=== PATIENT | female | born 1970 | race Caucasian/White ===

== ENCOUNTER 2017-08-14 11:02 | Emergency (ER) | payer MEDICAID ==
[2017-08-14 12:09] LABS: BASOPHILS 0.3 % (0-2); EOSINOPHILS 1.4 % (0-7); HEMATOCRIT 40.3 % (36.0-48.0); HEMOGLOBIN 14.1 g/dL (12-16); IMMATURE GRANULOCYTES 0.6 % (0-5); LYMPHOCYTES 29.5 % (15-50); MCH 32.1 pg (26.0-34.0); MCV 91.8 fL (80.0-100.0); MEAN PLATELET VOLUME 9.2 fL (7.4-10.4); MONOCYTES 5.5 % (2-11); NEUTROPHILS 62.7 % (40-80); PLATELET COUNT 322 10x3/uL (130-400); RBC 4.39 10x6/uL (4.00-5.40); RDW 12.6 % (11.5-14.5); WBC 11.2 10x3/uL (4.8-10.8)
[2017-08-14 12:28] LABS: ALBUMIN 3.7 g/dL (3.4-5.0); ALKALINE PHOSPHATASE 52 U/L (46-116); ALT (SGPT) 24 U/L (10-68); CALC OSMOLALITY 274 mosm/kg (275-300); CALCIUM 8.9 mg/dL (8.5-10.1); CARBON DIOXIDE 29.1 mmol/L (21.0-32.0); CHLORIDE - SERUM 103 mmol/L (98-107); CREATININE - SERUM 0.7 mg/dL (0.6-1.3); GLUCOSE 92 mg/dL (74-106); PROTEIN - SERUM 7.5 g/dL (6.4-8.2); SODIUM 138 mmol/L (136-145); UREA NITROGEN 9 mg/dL (7-18); eGFR NON AFRICAN AMERICAN > 90 mL/min (90-120)
[2017-08-14 12:44] LABS: APPEARANCE HAZY (CLEAR); BILIRUBIN NEGATIVE (NEGATIVE); COLOR YELLOW (YELLOW); GLUCOSE NEGATIVE (NEGATIVE); KETONE NEGATIVE (NEGATIVE); LEUKOCYTE ESTERASE NEGATIVE (NEGATIVE); NITRITE NEGATIVE (NEGATIVE); PROTEIN NEGATIVE (NEGATIVE); SPECIFIC GRAVITY 1.005 (1.005-1.020); UROBILINOGEN NORMAL (NORMAL)
[2017-08-14 12:45] LABS: BACTERIA MODERATE /hpf (NONE SEEN); EPITHELIAL CELLS 0-5 /hpf (0-5); MUCUS <1+ /lpf (NONE SEEN); RED CELLS - URINE OCC /hpf (0-5)
== END 2017-08-14 15:52 | disposition home or self-care (01) ==
LOC: D.ER 11:02
PROVIDERS: Emergency Medicine
DX: N83.202 Unspecified ovarian cyst, left side (principal); I10 Essential (primary) hypertension; F17.200 Nicotine dependence, unspecified, uncomplicated

== ENCOUNTER 2017-08-25 05:03 | Inpatient (IN) | payer MEDICAID ==
[2017-08-22 14:39] LABS: BASOPHILS 0.2 % (0-2); EOSINOPHILS 1.7 % (0-7); HEMATOCRIT 41.2 % (36.0-48.0); HEMOGLOBIN 14.5 g/dL (12-16); IMMATURE GRANULOCYTES 0.4 % (0-5); LYMPHOCYTES 31.5 % (15-50); MCH 32.3 pg (26.0-34.0); MCHC 35.2 g/dL (31.0-37.0); MCV 91.8 fL (80.0-100.0); MONOCYTES 5.5 % (2-11); NEUTROPHILS 60.7 % (40-80); PLATELET COUNT 335 10x3/uL (130-400); RBC 4.49 10x6/uL (4.00-5.40); RDW 13.1 % (11.5-14.5); WBC 12.3 10x3/uL (4.8-10.8)
[2017-08-22 14:50] LABS: CALC OSMOLALITY 270 mosm/kg (275-300); CALCIUM 8.8 mg/dL (8.5-10.1); CARBON DIOXIDE 29.8 mmol/L (21.0-32.0); CHLORIDE - SERUM 106 mmol/L (98-107); CREATININE - SERUM 0.7 mg/dL (0.6-1.3); GLUCOSE 96 mg/dL (74-106); POTASSIUM - SERUM 3.6 mmol/L (3.5-5.1); SODIUM 136 mmol/L (136-145); UREA NITROGEN 10 mg/dL (7-18); eGFR NON AFRICAN AMERICAN > 90 mL/min (90-120)
[~2017-08-25 05:03] MED LIST: CLONAZEPAM2 MG/TAB PO; CYCLOBENZAPRINE10 MG PO; DESERYL100 MG PO; HCTZ25 MG PO; NITROQUICK0.4 MG SL; OXYCODONE HCL10 MG PO; PHENERGAN25 M1 PO; PRINIVIL20 MG PO; PROVENTIL HFA6.7 GM INH; TENORMIN25 MG PO
[2017-08-25] MEDS ORDERED: CATAPRES0.3 MG PO (06:09)
[2017-08-25 06:12] VITALS: BP 113/67; BMI 24.5
--- NOTE | 2017-08-25 10:12 | NUR ---
ANESTHEIA ADVISES THE PATIENT HAS CHRONIC PAIN. ANESTHESIA ADVISED THE PATIENT WAS GIVEN KETAMINE AND HAD A TAP BLOCK FOR HER PROCEEDURE.
--- NOTE | 2017-08-25 10:26 | NUR ---
DR NAVA CONSULTED ABOUT THE PATIENTS PAIN AND VS IN THE RECOVERY ROOM.
[2017-08-25 10:44] VITALS: BP 122/74
--- NOTE | 2017-08-25 11:00 | NUR ---
PT WAS RECEIVED FROM RECOVERY ROOM S/P EXPOLORATORY LAPOROSCOPY WIH LYSIS OF ADHESIONS AND LEFT SALPINGO OOPHERECTOMY. PT IS DROWSY AND WHEN SHE IS AROUSED SHE STATES SHE IS HAVING PAIN AND IT IS A 10. FAMILY AT BEDSIDE. PT TRANSFERRED FROM STRETCHER TO BED. SIDE RAILS UP. BED LOWERED. GEN- DROWSY, EASY TO AROUSE. LUNGS- CLEAR BILATERALLY. HEART- RRR. ABD- SOFT WITH TENDERNESS NOTED. LAPAROSCOPIC INCISIONS NOTED WELL LOW TRANVSVERSE INCISION, CLEAN AND DRY. ICE PACK PLACED ON ABDOMEN. KELLY INTACT. SECURED TO R THIGH. SCD'S INTACT AND INITIATED. IV PATENT LEFT WRIST WITH LACTATED RINGERS INFUSING AT 125 CC/HR. STRATEGY SPECIALIST INITIATED. DILAUDID 0.4 MG Q 10 MIN WITH 6 MG LOCKOUT.
--- NOTE | 2017-08-25 11:30 | NUR ---
PT RESTING. FAMILY AT BEDSIDE. PT IS REQUESTING DIET DR VÁSQUEZ. EXPLAINED THAT SHE WAS ON CLEAR LIQUIDS AT THIS TIME. O 2 SAT 96 ON 2 LITERS VIA NASAL CANNULA. VSS
--- NOTE | 2017-08-25 12:48 | NUR ---
PT IS SLEEPING. O2 SAT 93 ON 2 LITERS OF 02 VIA NC. BED IS LOW, SIDE RAILS UP X 2 AND CALL LIGHT IN REACH.
--- NOTE | 2017-08-25 12:51 | NUR ---
350 CC URINE OUTPUT. NONA COLORED URINE.
[2017-08-25 12:58] VITALS: BP 133/77; BMI 24.5
--- NOTE | 2017-08-25 14:01 | NUR ---
PT WOKE UP. SHE ASK FOR A DIET SPRITE. GIVEN. SHE STATES THAT SHE IS DOING BETTER. FAMILY AT BEDSIDE.
--- NOTE | 2017-08-25 16:30 | NUR ---
DR FAJARDO IS HERE TO SEE PT. HE DISCUSSED HER SURGERY WITH HER.
[2017-08-25 17:32] LABS: BASOPHILS 0 % (0-2); EOSINOPHILS 0.1 % (0-7); IMMATURE GRANULOCYTES 0.2 % (0-5); LYMPHOCYTES 4.6 % (15-50); MCH 31.7 pg (26.0-34.0); MCHC 34.2 g/dL (31.0-37.0); MCV 92.7 fL (80.0-100.0); MEAN PLATELET VOLUME 9.1 fL (7.4-10.4); MONOCYTES 3.1 % (2-11); PLATELET COUNT 315 10x3/uL (130-400); RDW 13.1 % (11.5-14.5); WBC 15.2 10x3/uL (4.8-10.8)
[2017-08-25 19:15] VITALS: BP 114/70
--- NOTE | 2017-08-25 19:15 | NUR ---
BEDSIDE REPORT DONE. PT AWAKE. INTRODUCED SELF. V/S TAKEN. ASSESSMENT DONE. STATUS POST RSO/LSO LYSIS OF ADHESIONS. LAP INCISIONS WITH LOW TRANSVERSE INCISIOIN. REFILLED ICE BAG TO ABD. KELLY CATH TO DRAINAGE BAG. IVF--LR TO L ARM. IV SITE OK. ON DILAUDID PUTTY PATCHER FOR PAIN MANAGEMENT. O2 SAT 97% @ 2L/NC. SCD's TO BOTH LOWER EXTREMITIES TO PREVENT DVT.
--- NOTE | 2017-08-25 19:30 | NUR ---
DILAUDID CLIENT CARE MANAGER SYRINGE CHANGED.
--- NOTE | 2017-08-25 20:55 | NUR ---
KLONOPIN 2mg PO GIVEN. SEE E-MAR.
--- NOTE | 2017-08-26 00:30 | NUR ---
EYES CLOSED. LEFT UNDISTURBED.
[2017-08-26 02:23] VITALS: BP 116/81
--- NOTE | 2017-08-26 04:45 | NUR ---
ANIMAL CARE PROVIDER HERE TO DRAW AM LAB.
--- NOTE | 2017-08-26 05:39 | NUR ---
DILAUDID MANUFACTURING ENGINEER ASSEMBLY SYRINGE CHANGED. SLEPT FAIRLY DURING THE NIGHT. CONTINUING PLAN OF CARE.
[2017-08-26 06:18] LABS: BASOPHILS 0.1 % (0-2); EOSINOPHILS 0.1 % (0-7); HEMOGLOBIN 12.4 g/dL (12-16); IMMATURE GRANULOCYTES 0.2 % (0-5); LYMPHOCYTES 17.4 % (15-50); MCH 31.3 pg (26.0-34.0); MCHC 33.5 g/dL (31.0-37.0); MCV 93.4 fL (80.0-100.0); MEAN PLATELET VOLUME 9.5 fL (7.4-10.4); MONOCYTES 10.3 % (2-11); NEUTROPHILS 71.9 % (40-80); PLATELET COUNT 333 10x3/uL (130-400); RBC 3.96 10x6/uL (4.00-5.40); RDW 13.2 % (11.5-14.5); WBC 13.7 10x3/uL (4.8-10.8)
[2017-08-26 06:20] LABS: CALC OSMOLALITY 275 mosm/kg (275-300); CALCIUM 8.8 mg/dL (8.5-10.1); CARBON DIOXIDE 28.2 mmol/L (21.0-32.0); CHLORIDE - SERUM 103 mmol/L (98-107); CREATININE - SERUM 0.5 mg/dL (0.6-1.3); GLUCOSE 92 mg/dL (74-106); POTASSIUM - SERUM 3.8 mmol/L (3.5-5.1); SODIUM 139 mmol/L (136-145); UREA NITROGEN 6 mg/dL (7-18); eGFR NON AFRICAN AMERICAN > 90 mL/min (90-120)
[2017-08-26 07:30] VITALS: BP 133/77
--- NOTE | 2017-08-26 09:30 | NUR ---
PTS LETICIA WAS D'CD. GOOD URINE OUTPUT. PT GOT UP AND DRESSED HERSELF. SHE IS NOW AMBULATING WITH HER SISTER IN THE HALLWAY.
--- NOTE | 2017-08-26 10:14 | NUR ---
PT IS WALKING WITH HER SISTER TO GET HER INHALER OUT OF CAR. DR LOPEZ OK'D HER USING HER INHALER FROM HOME.
--- NOTE | 2017-08-26 11:05 | NUR ---
PT JUST GOT BACK FROM A LONG WALK WITH HER SISTER. SHE STATES THAT SHE IS HAVING CONTRACTIONS IN HER BELLY. SHE WOULD LIKE PAIN MED. SHE STATES HER PAIN IS A 10. DILAUDID 4 MG GIVEN PO.
--- NOTE | 2017-08-26 12:57 | NUR ---
PT SITTING IN BED CROSSED LEGGED AND TALKING TO COMPANY. PAIN SEEMS TO BE CONTROLLED AT THIS TIME. BED IS LOW, SIDE RAILS UP X 2 AND CALL LIGHT IN REACH.
--- NOTE | 2017-08-26 14:23 | NUR ---
PT IS BACK FROM WALKING. HER SISTER HAD TO PUSH HER PART OF THE WAY BECAUSE SHE GOT TIRED AND STARTED HURTING.
--- NOTE | 2017-08-26 14:42 | NUR ---
PT GIVEN PAIN MED. DILAUDID 4 MG. HER PAIN IS STILL A 10.
--- NOTE | 2017-08-26 16:00 | NUR ---
PT DISCHARGED HOME WITH HER SISTER. DISCHARGE INSTRUCTIONS DISCUSSED AND GIVEN. INCISION CARE DISCUSSED ALSO. PT TAKEN BY WHEELCHAIR TO HER SISTER'S VEHICLE.
--- NOTE | 2017-08-27 00:15 | OP ---
PATIENT NAME: MANNY REED MEDICAL RECORD: [id number] :72 LOCATION:[facility] ADMISSION DATE:08/26/17 SURGEON: HARJIT FAJARDO MD DATE OF OPERATION: 08/25/2017 PREOPERATIVE DIAGNOSES: 1. Pelvic pain. 2. Pelvic mass. POSTOPERATIVE DIAGNOSES: 1. Pelvic adhesive disease. 2. Left pelvic mass. 3. Pelvic pain. PROCEDURES: 1. Diagnostic laparoscopy. 2. Lysis of adhesions. 3. Laparoscopic RSO. 4. Exploratory laparotomy. 5. Lysis of adhesions. CO-SURGEONS: Dr. Fajardo/Dr. Escobar. ANESTHESIOLOGIST: Jose C Chacon MD. ANESTHESIA: General anesthetic with endotracheal intubation. FINDINGS: At the time of laparoscopy, multiple adhesions across the midline and left lower quadrant. Right lower quadrant with adhesions of the small bowel to the sidewall. Right ovary and tubes are unremarkable and easily accessible. The left small bowel is adhesed above the left ovary with left ovary being adhesed to the large bowel. At that time of exploratory laparotomy and removal of the ovary, a chocolate cyst was encountered on the left ovary. SPECIMENS REMOVED: Right and left ovary and tubes. SPECIMEN DISPOSITION: Pathology. ESTIMATED BLOOD LOSS: 150 cc. FLUIDS: 1325 cc of lactated Ringer's. URINE OUTPUT: 250 cc of clear urine. COMPLICATIONS: None. DRAINS: Reyes to gravity. INDICATIONS: The patient is a 47-year-old female with a chronic pain condition, seen in the Emergency Room, evaluated and found to have a pelvic mass. The patient is referred to VASC TECH and counseled. The patient has a negative ANUP and desires definitive therapy for pelvic mass. Due to her age and episodes of chronic pelvic pain, she requests removal of both ovaries at the time of procedure. OPERATIVE REPORT [id number] MANNY REED DESCRIPTION OF PROCEDURE: After informed consent was assured, the patient was taken to the operating room, anesthetic was obtained without difficulty. The patient was then prepped and draped in the usual sterile fashion. An incision is made at the umbilicus to accommodate a 5-mm trocar, which was inserted without difficulty and pneumoperitoneum developed. Dense adhesions were encountered along the midline and further to the left lower quadrant. Accessory ports were placed in the right and left side. A midline port was placed. Through the midline port, graspers were used to elevate the right ovary and tube. Using the Gyrus coagulation cutter, the infundibulopelvic ligament on the right was compressed, coagulated and removed. Dissection now began of the small bowel attached to the sidewall with EndoShears. After the initial plane is developed, further inspection reveals denser adhesions and laparoscopic approach is abandoned and an exploratory laparotomy now performed. A Pfannenstiel incision was used to enter the abdomen. Through this, Fryburg retractors and malleable were used to retract the bowel superiorly and the limit of the adhesions are identified. Dissection began with pickups and Metzenbaum scissors until the bowel was freed. The ovary is palpated and with continued sharp dissection, eventually visualized. The ovary is adhesed densely to the segment of the colon. Dissection began from the infundibulopelvic ligament. The pedicle was serially clamped, cut and tied until the ovary remains. Its only point of attachment is to the bowel. The ovary with mass is now shelled from the capsule, leaving some of the capsule behind on the bowel. The pelvis was now copiously irrigated and irrigant removed. Vascular pedicles are inspected and found to be hemostatic. Fascia was closed with Vicryl in a running fashion. Subcutaneous tissues inspected. Bleeding vessels cauterized and the skin reapproximated with errol. Errol placed on all the laparoscopic ports as well. Sponge, lap and needle counts correct times 2. TRANSINT:[id number] Voice Confirmation ID: [id number] DOCUMENT ID: [id number] HARJIT FAJARDO MD at 0015 CC: [id number] DICTATION DATE: 08/26/17807 UTILITY SPRAY OPERATOR: 08/26/17 0845 DIS IN 08/26/17 1910 [place] [id number]
--- NOTE | 2017-08-28 18:13 | DS ---
PATIENT:MANNY REED :72 MEDICAL RECORD: [id number] DISCHARGE SUMMARY ADMISSION DATE: 08/25/17 DISCHARGE DATE: 08/26/17 ADMISSION DATE: 08/25/2017. DISCHARGE DATE: 08/26/2017. ATTENDING PHYSICIAN: Dr. Fajardo. PROCEDURE PERFORMED WHILE HOSPITALIZED: Diagnostic laparoscopy with lysis of adhesion and exploratory laparotomy with BSO. HISTORY OF PRESENT ILLNESS: See the H&P in the system. SUMMARY OF HOSPITALIZATION: The patient was admitted to the hospital and underwent bilateral salpingo-oophorectomy. The patient had initial procedure started as a laparoscopy due to dense adhesive disease was converted to an open procedure. The patient has a history of chronic pain and there was some difficulty controlling her pain postoperative day #1. The patient was discharged home with instructions to use the OxyContin written to her by her dial painter to address postoperative pain issues. She has been given pain and fever precautions. The patient will follow up for incision check within the week. TRANSINT:[id number] Voice Confirmation ID: [id number] DOCUMENT ID: [id number] HARJIT FAJARDO MD at 1813 CC: [id number] DICTATION DATE: 08/28/17 0822 STRESS ANALYST: 08/28/17 1109 DIS IN 08/26/17 [place] [id number] [place] [address]
== END 2017-08-26 16:00 | disposition home or self-care (01) | DRG 743 ==
LOC: D.OPS 05:03 → D.WS 05:03 → D.OPS 07:30 → D.PAN 07:30 → EDSTATUS 07:30 → D.OPS 10:35 → D.MS 10:35 → D.WS 11:15 → D.OPS 08-26 09:20 → D.WS 08-26 09:20 → D.OPS 08-26 09:21 → D.WS 08-26 09:21
PROVIDERS: ADMIT Obstetrics & Gynecology
PROC: 0DN84ZZ Release Small Intestine, Percutaneous Endoscopic Approach (ICD-10-PCS; 2017-08-25)
PROC: 0UT24ZZ Resection of Bilateral Ovaries, Percutaneous Endoscopic Approach (ICD-10-PCS; principal; 2017-08-25 07:30)
PROC: 0UT74ZZ Resection of Bilateral Fallopian Tubes, Percutaneous Endoscopic Approach (ICD-10-PCS; 2017-08-25 07:30)
DX: N83.02 Follicular cyst of left ovary (principal); N83.12 Corpus luteum cyst of left ovary; N73.6 Female pelvic peritoneal adhesions (postinfective)

== ENCOUNTER 2020-05-14 12:27 | Emergency (ER) | payer MEDICAID ==
[~2020-05-14 12:27] MED LIST changes: +CATAPRES0.3 MG PO
[2020-05-14 12:33] VITALS: Ht 157.5 cm
[2020-05-14 12:48] LABS: BILIRUBIN NEGATIVE (NEGATIVE); GLUCOSE NEGATIVE (NEGATIVE); KETONE NEGATIVE (NEGATIVE); NITRITE NEGATIVE (NEGATIVE); UROBILINOGEN NORMAL (NORMAL)
[2020-05-14 12:50] LABS: BACTERIA MODERATE /hpf (NEGATIVE)
[2020-05-14] MEDS ORDERED: KEFLEX500 MG PO (13:32)
[2020-05-14] MEDS ORDERED: MACROBID100 MG PO (13:32)
[2020-05-14] MEDS ORDERED: PYRIDIUM100 MG PO (13:49)
[2020-05-14 13:55] VITALS: BP 124/79
== END 2020-05-14 13:50 | disposition home or self-care (01) ==
LOC: D.ER 12:27
PROVIDERS: Emergency Medicine
DX: N39.0 Urinary tract infection, site not specified (principal); R10.30 Lower abdominal pain, unspecified; I10 Essential (primary) hypertension; J44.9 Chronic obstructive pulmonary disease, unspecified; R30.0 Dysuria